=== PATIENT | female | born 1960 | race American Indian/Alaskan Native ===

== ENCOUNTER 2019-03-06 12:03 | Emergency (ER) | payer OTHER ==
[~2019-03-06] VITALS: Ht 162.6 cm; Wt 81.7 kg
[2019-03-06] MEDS ORDERED: LISI20 PO (12:17)
[2019-03-06] MEDS ORDERED: IBUP400 PO (13:27)
[2019-03-06] MEDS ORDERED: ALBU90OI INH (13:27)
[2019-03-06] MEDS ORDERED: Prednisone20 MG PO (13:27)
== END 2019-03-06 13:39 | disposition home or self-care (01) ==
LOC: ER 12:03
DX: J40 Bronchitis, not specified as acute or chronic (principal); I10 Essential (primary) hypertension; Z79.899 Other long term (current) drug therapy
CPT/HCPCS: 71046